=== PATIENT | female | born 1950 | race Caucasian/White ===

== ENCOUNTER 2018-07-25 14:15 | Emergency (ER) | payer SELFPAY ==
[2018-07-25] MEDS: ACETAMINOPHEN 500 MG TAB PO (15:55)
== END 2018-07-25 17:57 | disposition home or self-care (01) ==
LOC: E/R 14:15
DX: S82.61XA Displaced fracture of lateral malleolus of right fibula, initial encounter for closed fracture (principal); S93.401A Sprain of unspecified ligament of right ankle, initial encounter; S80.02XA Contusion of left knee, initial encounter; S50.311A Abrasion of right elbow, initial encounter; W01.0XXA Fall on same level from slipping, tripping and stumbling without subsequent striking against object, initial encounter; Y92.9 Unspecified place or not applicable
CPT/HCPCS: 73610; 73610-RT; 82962; 99283-25